=== PATIENT | male | born 1990 | race Two or more races ===

== ENCOUNTER 2024-12-23 06:55 | Emergency (ER) | payer OTHER ==
[~2024-12-23] VITALS: Ht 167.6 cm; Wt 70.3 kg
[2024-12-23] MEDS ORDERED: ONDANSETRON HCL 2 MG/ML VIAL IM STA (07:40)
[2024-12-23] MEDS ORDERED: CEFTRIAXONE SODIUM 1,000 MG VIAL IM STA (07:40)
[2024-12-23] MEDS ORDERED: KETOROLAC TROMETHAMINE 30 MG VIAL IM STA (07:40)
[2024-12-23] MEDS ORDERED: KETOROLAC TROMETHAMINE 30 MG VIAL ONE (07:42)
[2024-12-23] MEDS ORDERED: LIDOCAINE HCL 1% 10ML VIAL ONE (07:42)
[2024-12-23] MEDS ORDERED: CEFTRIAXONE SODIUM 1,000 MG VIAL ONE (07:42)
[2024-12-23] MEDS ORDERED: ONDANSETRON HCL 2 MG/ML VIAL ONE (07:42)
[2024-12-23 08:06] LABS: BASO % 0.2 % (0.1-1.2); EOS # 0.05 (0.04-0.54); EOS % 0.4 % (0.7-7.0); LYMPH # 0.78 (1.18-3.74); LYMPH % 6.4 % (19.3-53.1); MEAN PLATELET VOLUME 9.00 fl (9.4-12.4); MONO # 0.74 (0.24-0.82); MONO % 6.1 % (4.7-12.5); NEUT # 10.49 (1.56-6.13); NEUT % 86.5 % (34.0-71.1); RED CELL DISTRIBUTION WIDTH 12.8 % (11.6-14.4)
[2024-12-23 09:25] LABS: COVID-19 AG NEGATIVE (NEGATIVE)
== END 2024-12-23 09:53 | disposition home or self-care (01) ==
LOC: ER 06:55
PROVIDERS: General Practice
DX: J06.9 Acute upper respiratory infection, unspecified (principal); R51.9 Headache, unspecified; R05.9 Cough, unspecified; Z20.822 Contact with and (suspected) exposure to COVID-19